=== PATIENT | female | born 1935 | race Caucasian/White ===

== ENCOUNTER → 2020-12-13 10:25 | Outpatient (CLI) | payer OTHER, SELFPAY ==
--- NOTE | 2020-12-13 | DI.RAD.S_ITS ---
PROCEDURE: XR DEXA AXIAL SKELETON INDICATIONS: Asymptomatic menopausal state COMPARISON: None. FINDINGS: This blank DEXA report has been sent in error by the PACS system. The correct and complete report will be forthcoming in 1-2 days. Thank you for your patience and understanding. Dictated by: Antonietta Solorzano MD, PhD on 12/13/2020 at 11:19 Approved by: Antonietta Solorzano MD, PhD on 12/13/2020 at 11:19
== END ==
PROVIDERS: PCP Internal Medicine; Referring Provider Internal Medicine; Visit Provider Internal Medicine
DX: M85.851 Other specified disorders of bone density and structure, right thigh (principal); Z78.0 Asymptomatic menopausal state
CPT/HCPCS: 77080

== ENCOUNTER → 2024-08-12 15:35 | Outpatient (CLI) | payer MEDICARE, SELFPAY ==
--- NOTE | 2024-08-12 15:37 | DI.RAD.S_ITS ---
PROCEDURE: XR SHOULDER RT MIN 2V INDICATIONS: shoulder djd TECHNIQUE: 3 views of the shoulder were acquired. COMPARISON: None. FINDINGS: Bones: No fractures or dislocations. The humeral head is moderately high-riding. There is moderate glenohumeral joint space narrowing and marginal osteophytosis. 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 No suspicious bony lesions. Visualized ribs appear intact. Soft tissues: No suspicious soft tissue calcifications. 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 Dictated by: Burak Carney M.D. on 08/12/2024 at 17:21 Approved by: Burak Carney M.D. on 08/12/2024 at 17:22
--- NOTE | 2024-08-12 15:37 | DI.RAD.S_ITS ---
PROCEDURE: XR CERVICAL SPINE 4V OR 5V INDICATIONS: cervical rad TECHNIQUE: 6 views of the cervical spine acquired. COMPARISON: None. FINDINGS: Bones: No fractures or dislocations to the C7 level. Moderate to severe disc height loss at the C4-C5 and C5-C6 levels with adjacent endplate sclerosis and associated anterior osteophytosis. Multilevel bilateral facet hypertrophy noted. Oblique images demonstrate no bony foraminal stenoses. Soft tissues: No prevertebral soft tissue swelling. IMPRESSION: Moderate multilevel degenerative change without evidence of acute osseous abnormality. Dictated by: Burak Carney M.D. on 08/12/2024 at 17:23 Approved by: Burak Carney M.D. on 08/12/2024 at 17:24
== END ==
LOC: RAD 15:37
PROVIDERS: PCP Internal Medicine; Referring Provider Physical Medicine & Rehabilitation; Visit Provider Physical Medicine & Rehabilitation
DX: M75.41 Impingement syndrome of right shoulder (principal); M47.812 Spondylosis without myelopathy or radiculopathy, cervical region
CPT/HCPCS: 72050; 73030